=== PATIENT | male | born 1945 | race Caucasian/White ===

== ENCOUNTER 2017-01-26 18:12 | Emergency (ER) | payer BC, MEDICARE ==
[~2017-01-26] VITALS: Ht 177.8 cm; Wt 82.0 kg
[~2017-01-26 18:12] MED LIST: ASPI81 PO; ATEN1TAB73 PO; CENTTAB9 PO; DOXY100T PO; EZET10 PO; FENO50TA PO; FISH1000 PO; LORT5TAB PO; RAMI10CA PO; ROSU5 PO
[2017-01-26 18:14] VITALS: BP 190/88; PULSE 83; RESP 17; TEMP 99.5; O2SAT 96
[2017-01-26] MEDS ORDERED: SODIUM CHLORIDE 0.9% FLUSH 10 ML FLUSH IV FLUSH PRN (19:15)
[2017-01-26] MEDS ORDERED: VANCOMYCIN INJ 1,000 MG in SODIUM CHLOR 0.9% 250 ML INJ 250 ML IV ONE (19:15)
--- NOTE | 2017-01-26 19:17 | PD ---
HPI Chief Complaint: Skin Problem Time Seen by Provider: 19:07 Travel History International Travel<30 days: No Contact w/Intl Traveler<30days: No Traveled to known affect area: No History of Present Illness HPI 71-year-old male here for evaluation of right elbow pain, swelling, and fever. The patient thought that he may have had a pimple on his right elbow a few days ago. This area has since increased in size, swelling, warmth, and erythema. He has also felt feverish/chills. Pain is moderate, constant, worse with palpation and movements. He is able to flex and extend his elbow, however during flexion he feels as though his elbow is tight. PFSH Past Medical History Cardiovascular Problems: Yes High Cholesterol: Yes Chest Pain: Yes () Diabetes: Yes Diminished Hearing: No Hypertension: Yes Past Surgical History Cholecystectomy: Yes Coronary Stent: Yes (1999) Other Surgery: Yes (BIOPSY CHEST 1974) Social History Alcohol Use: Yes (2 BEERS YEARLY) Tobacco Use: No Substance Use: No Allergies-Medications (Allergen,Severity, Reaction): Coded Allergies: No Known Allergies (Verified , 01/27/08) Reported Meds & Prescriptions Reported Meds & Active Scripts Active Reported Metformin (Metformin HCl) 500 Mg Tab 500 Mg PO BIDPC Benazepril (Benazepril HCl) 20 Mg Tab 20 Mg PO DAILY Atenolol 25 Mg Tab 25 Mg PO DAILY Zetia (Ezetimibe) 10 Mg Tab 10 Mg PO DAILY Tricor (Fenofibrate) 145 Mg Tab 145 Mg PO DAILY Takw with food. Crestor (Rosuvastatin Calcium) 5 Mg Tab 5 Mg PO DAILY Multi-Vitamin Daily (Multiple Vitamin) 1 Tab Tab 1 Tab PO DAILY [place]-3 Fish Oil/Vitamin (Fish Oil-Cholecalciferol) 1,000-1,000 Mg Cap 1 Cap PO DAILY Aspirin 81 Mg Chew 81 Mg CHEW DAILY Review of Systems Except as stated in HPI: all other systems reviewed are Neg Physical Exam Narrative GENERAL: Well-developed, well-nourished, comfortable, no apparent distress. SKIN: Focused skin assessment warm/dry. Posterior elbow with mild edema in the olecranon bursa with overlying warmth and erythema, no red streaks, no crepitus , no induration. HEAD: Atraumatic. Normocephalic. EYES: Pupils equal and round. No scleral icterus. No injection or drainage. ENT: Mucous membranes pink and moist. NECK: Trachea midline. No JVD. CARDIOVASCULAR: Regular rate and rhythm. Bilateral distal radial pulses are brisk and equal. No murmur. RESPIRATORY: No accessory muscle use. Clear to auscultation. Breath sounds equal bilaterally. MUSCULOSKELETAL: Skin exam as above. Normal range of flexion and extension in the right wrist. The rest of his joints and extremities are without warmth, without erythema, without deformity, with normal range of motion. NEUROLOGICAL: Awake and alert. No obvious cranial nerve deficits. Motor grossly within normal limits. Normal speech. PSYCHIATRIC: Appropriate mood and affect; insight and judgment normal. Data Data Last Documented VS Vital Signs Date Time Temp Pulse Resp B/P (MAP) Pulse Ox O2 Delivery O2 Flow Rate FiO2 01/26/17 20:00 71 18 171/81 (111) 98 Room Air 01/26/17 18:14 99.5 Orders Orders Basic Metabolic Panel (Bmp) (01/26/17 19:12) Complete Blood Count With Diff (01/26/17 19:12) Iv Access Insert/Monitor (01/26/17 19:12) Ecg Monitoring (01/26/17 19:12) Oximetry (01/26/17 19:12) Sodium Chloride 0.9% Flush (Ns Flush) (01/26/17 19:15) Vancomycin Inj (Vancomycin Inj) (01/26/17 19:15) Elbow, Complete (4 Vws) (01/26/17 ) Labs Laboratory Tests Test 01/26/17 19:30 White Blood Count 6.8 TH/MM3 Red Blood Count 4.76 MIL/MM3 Hemoglobin 13.8 GM/DL Hematocrit 41.6 % Mean Corpuscular Volume 87.5 FL Mean Corpuscular Hemoglobin 29.1 PG Mean Corpuscular Hemoglobin Concent 33.2 % Red Cell Distribution Width 13.5 % Platelet Count 213 TH/MM3 Mean Platelet Volume 8.9 FL Neutrophils (%) (Auto) 69.7 % Lymphocytes (%) (Auto) 16.1 % Monocytes (%) (Auto) 10.3 % Eosinophils (%) (Auto) 2.9 % Basophils (%) (Auto) 1.0 % Neutrophils # (Auto) 4.8 TH/MM3 Lymphocytes # (Auto) 1.1 TH/MM3 Monocytes # (Auto) 0.7 TH/MM3 Eosinophils # (Auto) 0.2 TH/MM3 Basophils # (Auto) 0.1 TH/MM3 CBC Comment DIFF FINAL Differential Comment Blood Urea Nitrogen 24 MG/DL Creatinine 1.34 MG/DL Random Glucose 167 MG/DL Calcium Level 9.2 MG/DL Sodium Level 138 MEQ/L Potassium Level 3.9 MEQ/L Chloride Level 106 MEQ/L Carbon Dioxide Level 24.7 MEQ/L Anion Gap 7 MEQ/L Estimat Glomerular Filtration Rate 52 ML/MIN MDM Medical Decision Making Medical Screen Exam Complete: Yes Emergency Medical Condition: Yes Differential Diagnosis Olecranon bursitis, cellulitis of the right elbow, septic arthritis unlikely based on physical exam Narrative Course Initial vital signs show heart rate 83, blood pressure 190/88, pulse ox 96% on room air, oral temp of 99.5F. CBC: WBC 6.8, hemoglobin 13.8, hematocrit 41.6, platelets 213. BMP is remarkable for BUN 24, creatinine 1.34, GFR 52, random glucose 167, otherwise unremarkable. Right elbow x-ray: No fracture seen. Localized soft tissue swelling about the olecranon. Patient was made aware of all findings. His physical exam finding is not consistent with a septic arthritis. He is able to flex and extend his right elbow. He does have signs of olecranon bursitis with overlying cellulitis. He was given a dose of IV vancomycin here in the emergency department. Plan is to discharge him home with a prescription for clindamycin and have him return to the emergency Department in 2 days for wound check. He was informed on when to return to the emergency Department sooner. He verbalizes understanding and agreement with plan. Diagnosis Primary Impression: Olecranon bursitis Qualified Codes: M70.21 - Olecranon bursitis, right elbow Additional Impression: Cellulitis of right elbow Referrals: Carloz Dickson MD 1 week Orthopedist Primary Care Physician 2 days Additional Instructions: Return to the Emergency Department in 2 days for a wound check. Take antibody as prescribed. Return to the emergency Department sooner for worsening symptoms or any other concerns as discussed. Scripts Clindamycin (Clindamycin) 150 Mg Cap 450 MG PO Q6H for Infection for 10 Days, #120 CAP 0 Refills Prov: Christopher Moss MD 01/26/17 Disposition: 01 DISCHARGE HOME Condition: Stable Christopher Moss MD Jan 26, 2017 19:17
[2017-01-26] MEDS ORDERED: ATEN25TA PO (19:43)
[2017-01-26] MEDS ORDERED: OMEGCAP PO (19:43)
[2017-01-26] MEDS ORDERED: BENA20TA PO (19:43)
[2017-01-26] MEDS ORDERED: FENO50TA PO (19:43)
[2017-01-26] MEDS ORDERED: ROSU5 PO (19:43)
[2017-01-26] MEDS ORDERED: EZET10 PO (19:43)
[2017-01-26] MEDS ORDERED: MULT-65 PO (19:43)
[2017-01-26] MEDS ORDERED: ASPI-516 CHEW (19:43)
[2017-01-26] MEDS ORDERED: METF500T PO (19:43)
[2017-01-26 19:44] VITALS: O2SAT 98
[2017-01-26 20:00] VITALS: BP 171/81; PULSE 71; RESP 18; O2SAT 98
[2017-01-26 20:09] LABS: AUTOMATED NEUTROPHIL # 4.8 TH/MM3 (1.8-7.7); BASOPHIL # 0.1 TH/MM3 (0-0.2); EOSINOPHIL # 0.2 TH/MM3 (0-0.4); EOSINOPHIL % 2.9 % (0.0-4.0); HEMATOCRIT 41.6 % (39.0-51.0); HEMO FLAGS DIFF FINAL; LYMPH % 16.1 % (9.0-44.0); LYMPHOCYTE # 1.1 TH/MM3 (1.0-4.8); MEAN CELL VOLUME 87.5 FL (80.0-100.0); MEAN CORPUSCULAR HEMOGLOBIN 29.1 PG (27.0-34.0); MEAN CORPUSCULAR HGB CONC 33.2 % (32.0-36.0); MONO % 10.3 % (0.0-8.0); NEUT % 69.7 % (16.0-70.0); PLATELET COUNT 213 TH/MM3 (150-450); RED BLOOD COUNT 4.76 MIL/MM3 (4.50-5.90); RED CELL DISTRIBUTION WIDTH 13.5 % (11.6-17.2); WHITE BLOOD COUNT 6.8 TH/MM3 (4.0-11.0)
[2017-01-26 20:16] LABS: BICARBONATE 24.7 MEQ/L (21.0-32.0); POTASSIUM 3.9 MEQ/L (3.5-5.1)
--- NOTE | 2017-01-26 20:24 | RADRPT ---
EXAM DATE/TIME: 01/26/2017 19:19 [facility] COMPARISON: No previous studies available for comparison. INDICATIONS : Right elbow pain and swelling. MEDICAL HISTORY : None. SURGICAL HISTORY : None. ENCOUNTER: Initial ACUITY: 1 week PAIN SCORE: 5/10 LOCATION: Right elbow. FINDINGS: There is normal alignment of the osseous structures about the elbow. No evidence of fracture or disl ocation. No displacement of the anterior fat-pad. There is moderate soft tissue swelling about the olecranon measuring up to 1.6 cm. No radiopaque foreign bodies. CONCLUSION: 1. No fracture seen. 2. Localized soft tissue swelling about the olecranon. Den Carolina MD on January 26, 2017 at 20:21 Board Certified Radiologist. This report was verified electronically.
[2017-01-26] MEDS ORDERED: CLIN150C14 PO (21:01)
== END 2017-01-26 21:20 | disposition home or self-care (01) ==
LOC: NEPD 18:12
DX: M70.21 Olecranon bursitis, right elbow (principal); L03.113 Cellulitis of right upper limb; R50.9 Fever, unspecified; E78.00 Pure hypercholesterolemia, unspecified; E11.9 Type 2 diabetes mellitus without complications; I10 Essential (primary) hypertension; Z79.899 Other long term (current) drug therapy; Z79.82 Long term (current) use of aspirin
CPT/HCPCS: 73080; 80048; 85025; 96365; 99284; J3370; J7050

== ENCOUNTER 2017-01-28 16:34 | Emergency (ER) | payer MEDICARE ==
[~2017-01-28] VITALS: Ht 177.8 cm; Wt 81.5 kg
[~2017-01-28 16:34] MED LIST changes: +ASPI-516 CHEW; -ASPI81 PO; -ATEN1TAB73 PO; +ATEN25TA PO; +BENA20TA PO; -CENTTAB9 PO; +CLIN150C14 PO; -DOXY100T PO; -FISH1000 PO; -LORT5TAB PO; +METF500T PO; +MULT-65 PO; +OMEGCAP PO; -RAMI10CA PO
[2017-01-28 16:35] VITALS: BP 139/69; PULSE 81; RESP 18; TEMP 99.6; O2SAT 99
--- NOTE | 2017-01-28 17:55 | PD ---
HPI Chief Complaint: Wound/Suture/Staple Re-Check Time Seen by Provider: 17:37 Travel History International Travel<30 days: No Contact w/Intl Traveler<30days: No Traveled to known affect area: No History of Present Illness HPI 71-year-old male here for evaluation of a wound check. I saw the patient in the emergency department 2 days ago and diagnosed him with right olecranon bursitis with overlying cellulitis. He was given a dose of IV antibiotics in the emergency department and discharged home with a prescription for clindamycin. She reports that the swelling to his posterior right elbow is significantly improved. He still has a low-grade fever. Pain is currently 1/2 out of 10 and is worse with extreme flexion of his right elbow. He is otherwise able to flex and extend his elbow and a full range of motion as well as pronate and supinate and for range of motion without causing significant pain to the elbow. PFSH Past Medical History Cardiovascular Problems: Yes High Cholesterol: Yes Chest Pain: Yes ([place]) Diabetes: Yes Diminished Hearing: No Hypertension: Yes Past Surgical History Cholecystectomy: Yes Coronary Stent: Yes (1999) Other Surgery: Yes (BIOPSY CHEST 1974) Social History Alcohol Use: Yes (2 BEERS YEARLY) Tobacco Use: No Substance Use: No Allergies-Medications (Allergen,Severity, Reaction): Coded Allergies: No Known Allergies (Verified , 01/27/08) Reported Meds & Prescriptions Reported Meds & Active Scripts Active Clindamycin (Clindamycin HCl) 150 Mg Cap 450 Mg PO Q6H 10 Days Reported Metformin (Metformin HCl) 500 Mg Tab 500 Mg PO BIDPC Benazepril (Benazepril HCl) 20 Mg Tab 20 Mg PO DAILY Atenolol 25 Mg Tab 25 Mg PO DAILY Zetia (Ezetimibe) 10 Mg Tab 10 Mg PO DAILY Tricor (Fenofibrate) 145 Mg Tab 145 Mg PO DAILY Takw with food. Crestor (Rosuvastatin Calcium) 5 Mg Tab 5 Mg PO DAILY Multi-Vitamin Daily (Multiple Vitamin) 1 Tab Tab 1 Tab PO DAILY [place]-3 Fish Oil/Vitamin (Fish Oil-Cholecalciferol) 1,000-1,000 Mg Cap 1 Cap PO DAILY Aspirin 81 Mg Chew 81 Mg CHEW DAILY Review of Systems Except as stated in HPI: all other systems reviewed are Neg Physical Exam Narrative GENERAL: Well-developed, well-nourished, comfortable, no acute distress. SKIN: Right posterior elbow with mild swelling over the olecranon bursa which is significantly improved from 2 days ago with mild overlying warmth and erythema. There are no red streaks. No crepitus. CARDIOVASCULAR: Regular rate and rhythm. Bilateral distal radial pulses are brisk and equal. MUSCULOSKELETAL: Skin exam as above. Full range of flexion and extension as well as pronation and supination of the right forearm/elbow. NEUROLOGICAL: Awake and alert. No obvious cranial nerve deficits. Motor grossly within normal limits. Normal speech. Normal sensation in the right upper extremity. PSYCHIATRIC: Appropriate mood and affect; insight and judgment normal. Data Data Last Documented VS Vital Signs Date Time Temp Pulse Resp B/P (MAP) Pulse Ox O2 Delivery O2 Flow Rate FiO2 01/28/17 16:35 99.6 81 18 139/69 (92) 99 Room Air MDM Medical Decision Making Medical Screen Exam Complete: Yes Emergency Medical Condition: Yes Medical Record Reviewed: Yes Differential Diagnosis Olecranon bursitis, cellulitis, septic arthritis less likely. Narrative Course Vital signs show heart rate 81, blood pressure 139/69, pulse ox 99% on room air , oral temp of 99.6 reason Fahrenheit. This is a 71-year-old male who is here for a wound check after being diagnosed with olecranon bursitis as well as overlying cellulitis 2 days ago in his right elbow. The patient reports that his symptoms have significantly improved after 2 days of antibiotics. He rates his pain at 1/2 out of 10 with extreme flexion of the elbow, otherwise there is no pain with range of motion. He does have tenderness over the olecranon bursa. His exam findings are not consistent with a septic arthritis. I have advised that the patient continue with his ten-day course of clindamycin. Tylenol for fever. He was advised on when to return to the emergency department. He is happy with this plan. Diagnosis Primary Impression: Visit for wound check Additional Impressions: Olecranon bursitis Qualified Codes: M70.21 - Olecranon bursitis, right elbow Cellulitis of right elbow Referrals: Bishop Morejon MD 3 days Orthopedist Primary Care Physician 3 days Additional Instructions: Follow-up with a primary care physician this week. Continue clindamycin as prescribed. Return to the emergency department for worsening symptoms or any other concerns. Disposition: 01 DISCHARGE HOME Condition: Christopher Cruz MD Jan 28, 2017 17:55
== END 2017-01-28 18:11 | disposition home or self-care (01) ==
LOC: NEPD 16:34
DX: M70.21 Olecranon bursitis, right elbow (principal); L03.113 Cellulitis of right upper limb; E11.9 Type 2 diabetes mellitus without complications; I10 Essential (primary) hypertension
CPT/HCPCS: 99281; 99282